=== PATIENT | male | born 1985 | race Caucasian/White ===

== ENCOUNTER 2016-11-10 17:35 | Emergency (ER) | payer BC ==
[2016-11-10 17:42] VITALS: BP 145/100
[2016-11-10] MEDS ORDERED: Sodium Chloride 0.9% 10 ML Syringe FLUSH PRN (17:53)
--- NOTE | 2016-11-10 18:24 | EDM.PDOC ---
ED HPI GENERAL MEDICAL PROBLEM - General Chief Complaint: Abdominal Pain Stated Complaint: NAUSEA/VOMITING/CONSTIPATION Time Seen by Provider: 11/10/16 17:47 Source of Information: Reports: Patient, RN Notes Reviewed - History of Present Illness INITIAL COMMENTS - FREE TEXT/NARRATIVE: 31-year-old male comes in with abdominal pain. He does have history of Crohn's disease. He does get intermittent abdominal pain quite frequently. For the last 2 or 3 days he has had more frequent lower abdominal discomfort, rectal urgency. He has been constipated. Fasting some small amounts of BM daily but not a lot. There also has been occasional very small amounts of diarrhea. He has had increased nausea vomiting the last 3 days. No fever or chills. He has continued to eat and drink fairly normally. Abdomen Pain Score (Numeric/FACES): 7 - Related Data Allergies Allergy/AdvReac Type Severity Reaction Status Date / Time dairy Allergy Stomach Uncoded 11/10/16 17:47 Ache potatoe Allergy Stomach Uncoded 11/10/16 17:47 Ache Home Meds: Home Meds Omeprazole 20 mg PO DAILY #14 cap.cr 11/10/16 [Rx] Ondansetron [Zofran ODT] 4 mg PO Q8H PRN #10 tab.dis 11/10/16 [Rx] Past Medical History Gastrointestinal History: Reports: Other (See Below) Other Gastrointestinal History: crohns Social & Family History - Tobacco Use Smoking Status *Q: Never Smoker - Caffeine Use Caffeine Use: Reports: Coffee, Soda - Recreational Drug Use Recreational Drug Use: No ED ROS GENERAL - Review of Systems Review Of Systems: See Below Constitutional: Denies: Fever, Chills, Diaphoresis HEENT: Reports: No Symptoms Respiratory: Denies: Shortness of Breath Cardiovascular: Denies: Chest Pain GI/Abdominal: Reports: Abdominal Pain (Lower abdominal), Constipation, Diarrhea , Nausea, Vomiting Musculoskeletal: Reports: No Symptoms Skin: Reports: No Symptoms Neurological: Reports: No Symptoms ED EXAM, GI/ABD - Physical Exam Exam: See Below General Appearance: Alert, No Apparent Distress Eyes: Bilateral: Normal Appearance Throat/Mouth: Normal Inspection, Normal Oropharynx Head: Atraumatic Neck: Supple Respiratory/Chest: No Respiratory Distress, Lungs Clear, Normal Breath Sounds Cardiovascular: Regular Rate, Rhythm GI/Abdominal Exam: Soft, Non-Tender. No: Guarding Back Exam: Normal Inspection Extremities: Normal Inspection, Normal Range of Motion Neurological: Alert, Oriented, No Motor/Sensory Deficits Skin Exam: Warm, Dry, Normal Color Course - Vital Signs Last Recorded V/S: Last Vital Signs Temp 97.8 F 11/10/16 17:41 Pulse 94 11/10/16 17:41 Resp 20 11/10/16 17:41 BP 145/100 H 11/10/16 17:41 Pulse Ox 100 11/10/16 17:41 - Orders/Labs/Meds Orders: Active Orders 24 hr Category Date Time Status Peripheral IV Care [RC] . DIRECTED Care 11/10/16 17:53 Active Abdomen 2V AP Flat Upright [CR] Stat Exams 11/10/16 18:04 Taken Sodium Chloride 0.9% [Saline Flush] Med 11/10/16 17:53 Active 10 ml FLUSH ASDIRECTED PRN Medication Orders Sodium Chloride (Saline Flush) 10 ml FLUSH ASDIRECTED PRN PRN Reason: Keep Vein Open Last Admin: 11/10/16 18:35 Dose: 10 ml Labs: Laboratory Tests 11/10/16 11/10/16 11/10/16 Range/Units 18:03 18:03 18:03 WBC 7.82 (4.23-9.07) K/mm3 RBC 5.69 (4.63-6.08) M/mm3 Hgb 14.4 (13.7-17.5) gm/L Hct 42.9 (40.1-51.0) % MCV 75.4 L (79.0-92.2) fl MCH 25.3 L (25.7-32.2) pg MCHC 33.6 (32.2-35.5) g/dl RDW Std Deviation 37.1 (35.1-43.9) fL Plt Count 252 (163-337) K/mm3 MPV 9.6 (9.4-12.3) fl Neut % (Auto) 64.6 (34.0-67.9) % Lymph % (Auto) 22.4 (21.8-53.1) % Iron % (Auto) 6.8 (5.3-12.2) % Eos % (Auto) 5.6 (0.8-7.0) Baso % (Auto) 0.5 (0.1-1.2) % Neut # (Auto) 5.05 (1.78-5.38) K/mm3 Lymph # (Auto) 1.75 (1.32-3.57) K/mm3 Iron # (Auto) 0.53 (0.30-0.82) K/mm3 Eos # (Auto) 0.44 (0.04-0.54) K/mm3 Baso # (Auto) 0.04 (0.01-0.08) K/mm3 Sodium 139 (136-145) mEq/L Potassium 3.9 (3.5-5.1) mEq/L Chloride 105 (98-107) mEq/L Carbon Dioxide 28 (21-32) mEq/L Anion Gap 9.9 (5-15) BUN 16 (7-18) mg/dL Creatinine 1.1 (0.7-1.3) mg/dL Est Cr Clr Drug Dosing 94.14 mL/min Estimated GFR (MDRD) > 60 (>60) mL/min BUN/Creatinine Ratio 14.5 (14-18) Glucose 201 H (74-106) mg/dL Calcium 9.1 (8.5-10.1) mg/dL Total Bilirubin 0.2 (0.2-1.0) mg/dL AST 22 (15-37) U/L ALT 19 (16-63) U/L Alkaline Phosphatase 80 (46-116) U/L C-Reactive Protein 0.3 (<1.0) mg/dL Total Protein 7.5 (6.4-8.2) g/dl Albumin 3.7 (3.4-5.0) g/dl Globulin 3.8 gm/dL Albumin/Globulin Ratio 1.0 (1-2) Meds: Medications Generic Name Dose Route Start Last Admin Trade Name Freq PRN Reason Stop Dose Admin Sodium Chloride 10 ml 11/10/16 17:53 11/10/16 18:35 Saline Flush FLUSH 10 ml ASDIRECTED PRN Administration Keep Vein Open - Re-Assessments/Exams Free Text/Narrative Re-Assessment/Exam: 11/10/16 19:06 White blood count, C-reactive protein are normal, other labs all also relatively normal. Flat and upright of the abdomen shows generous stool in the colon, no air-fluid levels are major gas collections. No evidence at all for obstruction. CT scan of abdomen not clinically indicated at this time. Discharge instructions as documented Departure - Departure Time of Disposition: 18:59 Disposition: Home, Self-Care 01 Condition: Fair Clinical Impression: Abdominal pain Qualifiers: Abdominal location: lower abdomen, unspecified Qualified Code(s): R10.30 - Lower abdominal pain, unspecified Crohns disease Qualifiers: Gastrointestinal tract location: unspecified location Digestive disease complication type: without complication Qualified Code(s): K50.90 - Crohn's disease, unspecified, without complications Constipation Qualifiers: Constipation type: unspecified constipation type Qualified Code(s): K59.00 - Constipation, unspecified - Discharge Information Prescriptions: Omeprazole 20 mg PO DAILY #14 cap.cr Ondansetron [Zofran ODT] 4 mg PO Q8H PRN #10 tab.dis PRN Reason: Nausea/Vomiting Referrals: Saúl More MD [Primary Care Provider] - Forms: ED Department Discharge, ED Return to Work/School Form Additional Instructions: Drink plenty of water to maintain hydration, Zofran ODT if needed for further nausea or vomiting, pickup some magnesium sulfate laxative or MiraLAX to help clear out your colon. That is available OTC. Omeprazole 20 mg once daily for the next 2 weeks. Follow-up with Dr. Graf if not much better within 2-3 days as expected, return to ED if symptoms worsening in any way - My Orders Last 24 Hours: My Active Orders 11/10/16 17:53 Peripheral IV Care [RC] . DIRECTED Sodium Chloride 0.9% [Saline Flush] 10 ml FLUSH ASDIRECTED PRN 11/10/16 18:04 Abdomen 2V AP Flat Upright [CR] Stat - Assessment/Plan Last 24 Hours: My Active Orders 11/10/16 17:53 Peripheral IV Care [RC] . DIRECTED Sodium Chloride 0.9% [Saline Flush] 10 ml FLUSH ASDIRECTED PRN 11/10/16 18:04 Abdomen 2V AP Flat Upright [CR] Stat
--- NOTE | 2016-11-11 09:50 | CR ---
Abdomen: Supine and upright views of the abdomen were obtained. Comparison: No previous abdominal x-ray. Scattered surgical clips are seen within the abdomen and within the right groin. Bowel gas pattern appears within normal limits. No free air is seen. No discrete soft tissue abnormality is appreciated. Bony structures are within normal limits for the patient's age. Impression: 1. Incidental findings. Nothing acute is appreciated on two-view abdominal x-ray. Diagnostic code #2
== END 2016-11-10 19:33 | disposition home or self-care (01) ==
LOC: JD.ED 17:35
DX: K59.00 Constipation, unspecified (principal); K50.90 Crohn's disease, unspecified, without complications; Z79.899 Other long term (current) drug therapy; Z91.011 Allergy to milk products; Z91.018 Allergy to other foods
CPT/HCPCS: 36415; 74020; 80053; 85025; 86140; 99284; J7050; 99283